=== PATIENT | male | born 1935 | race African-American/Black ===

== ENCOUNTER 2016-12-18 19:01 | Emergency (ER) | payer MEDICARE, OTHER ==
[2016-12-18] MEDS ORDERED: traMADol HCl 50 MG TAB ONE (20:16)
--- NOTE | 2016-12-18 20:52 | RAD ---
RIGHT KNEE FOUR VIEWS 12/18/16 HISTORY: Fall. Right knee injury. FINDINGS: There is fragmentation of the medial tibial spine with minimal displacement. Tricompartmental osteop hytosis is present with chondrocalcinosis. Small amount of fluid distends the suprapatellar bursa. There is mild impaction of the articular surface of the lateral femoral condyle. IMPRESSION: 1. Joint fluid and other radiographic findings are evidence of anterior cruciate ligament injur y. 2. Osteoarthritis with chondrocalcinosis. POS: [facility]
--- NOTE | 2016-12-18 21:11 | ERRECORD ---
[facility] EMERGENCY RECORD HPI KNEE (19:14 AGRE) CHIEF COMPLAINT: Patient presents for evaluation of decreased range of motion, Patient presents for evaluation of injury, Patient presents for evaluation of pain, Patient presents for evaluation of swelling, to the right knee. HISTORIAN: History provided by patient, History provided by patient's family, FELL WHEN SLIPPED IN RAIN AND LANDED ON THE RIGHT KNEE 2 DAYS AGO. HAS SWELLING AND PAIN OF THE RIGHT KNEE. HURTS TO WALK. NO OTHER INJURIES. MECHANISM OF INJURY: Known mechanism, Mechanism of injury fall. LOCATION: Symptoms are localized, most severe anteriorally. QUALITY: Pain is dull in nature, described as aching, described as throbbing. SEVERITY: Maximum severity of symptoms moderate, Currently symptoms are moderate. TIME COURSE: Sudden onset of symptoms, There has been no change in the patient's symptoms over time. ASSOCIATED WITH: No associated ankle pain, No associated coolness to touch, Associated with decreased range of motion, No associated foot pain, No associated hip pain, Associated with injury, Associated with pain on walking, Associated with swelling, Associated with warmth. EXACERBATED BY: Patient's condition exacerbated by walking. RELIEVED BY: Patient's condition relieved by rest. ROS (19:16 AGRE) CONSTITUTIONAL: Historian denies chills, denies fever, denies lethargy, denies malaise. EYES: Historian denies eye pain, denies eye redness. ENT: Historian denies rhinorrhea, denies sinus pain, denies sore throat. CARDIOVASCULAR: Historian denies chest pain, denies dyspnea on exertion. RESPIRATORY: Historian denies cough, denies shortness of breath. GI: Historian denies abdominal pain, denies nausea, denies vomiting. MUSCULOSKELETAL: Historian denies back pain, denies neck pain. SKIN: Negative skin review of systems, Historian denies skin changes, denies skin lesions. NEUROLOGIC: Historian denies headache, denies mental status changes. PSYCHIATRIC: Negative psychiatric review of systems, Historian denies anxiety. PAST MEDICAL HISTORY (19:16 [facility]) MEDICAL HISTORY: Notes: "PROSTATE PROBLEMS", Flu vaccine up to date, Tetanus immunization up to date, Pneumococcal vaccine up to date, Past medical history includes history of hyperlipidemia, high cholesterol, Past medical history includes history of hypertension, which has been treated, Patient is &a-1R&a+25V*p+0X*h1770X*c202B*c15G*c2P*p-0X&a-25V&a+1R Name: Jignesh Iglesias : 1935 M81 MedRec: [id number] AcctNum: [id number] Prepared: SatDec 19, 2016 00:53 by Interface Page 1 of 4 pMD [facility] EMERGENCY RECORD compliant. MALE SURGICAL HISTORY: Patient has no surgical history. PSYCHIATRIC HISTORY: No previous psychiatric history. SOCIAL HISTORY: Patient denies alcohol use, Patient denies drug use, Patient is a former tobacco user, smoked cigarettes, Tobacco history notes: "QUIT ABOUT 40 YEARS AGO", Lives at home, with family. KNOWN ALLERGIES No Known Allergies (Unconfirmed) No Known Drug Allergies CURRENT MEDICATIONS (19:13 [facility]) pentoxifylline: TABLET, EXTENDED RELEASE : Strength - 400 mg : ORAL Patient Dose: 1 tab(s) Oral 2 times a day (with meals). finasteride: TABLET : Strength - 5 mg : ORAL Patient Dose: 1 tab(s) Oral once a day. amLODIPine: TABLET : Strength - 10 mg : ORAL Patient Dose: 1 tab(s) Oral once a day. atorvastatin: TABLET : Strength - 10 mg : ORAL Patient Dose: 1 tab(s) Oral once a day. tamsulosin: CAPSULE, EXT RELEASE 24 HR : Strength - 0.4 mg : ORAL Patient Dose: 1 tab(s) Oral As Needed.ONCE A DAY PRN. aspirin: TABLET : Strength - 81 mg : ORAL Patient Dose: 1 tab(s) Oral once a day. VITAL SIGNS (19:12 [facility]) VITAL SIGNS: BP: 185/78, Pulse: 90, Resp: 18, Temp: 99.0 (Oral), Pain: 6, O2 sat: 96, Time: 12/18/2016 19:12. PHYSICAL EXAM (19:16 [facility]) CONSTITUTIONAL: Vital signs reviewed, Patient afebrile, Patient appears non toxic, Patient appears pain free, Patient alert and oriented to person, place and time, NURSES NOTES REVIEWED. HEAD: Head exam included findings of head atraumatic, normocephalic. EYES: Eye exam included findings of eyelids normal to inspection, Extraocular muscles intact, Conjunctiva normal, Sclera normal. ENT: Ear exam normal, Nose exam normal, Mouth exam normal. NECK: Neck exam included findings of normal range of motion, no meningeal signs. RESPIRATORY CHEST: Respiratory exam included findings of no respiratory distress, Chest exam included findings of chest movement symmetrical. &a-1R&a+25V*p+0X*d6744J*c202B*c15G*c2P*p-0X&a-25V&a+1R Name: Jignesh Iglesias : 1935 M81 MedRec: [id number] AcctNum: [id number] Prepared: SatDec 19, 2016 00:53 by Interface Page 2 of 4 pMD [facility] EMERGENCY RECORD BACK: Back exam included findings of normal inspection, range of motion normal. UPPER EXTREMITY: Upper extremity exam included findings of inspection normal, Range of motion normal. LOWER EXTREMITY: SWELLING WITH GENERALIZED TENDERNESS, INCREASED WARMTH AND JOINT EFFUSION OVER THE RIGHT KNEE. NO INSTABILITY. THERE IS F.R.O.M. WITH DISCOMFORT. NO NEUROVASCULAR DEFICITS. REMAINDER OF RLE EXAM IS WNL INCLUDING HIP, FEMUR, ANKLE, TIB-FIB, FOOT. NEURO: Neuro exam findings include patient oriented to person, place and time, Speech normal, Gait normal, Memory normal, Cranial nerves intact, no focal motor deficits. SKIN: Skin exam included findings of skin warm, dry, and normal in color. PSYCHIATRIC: Psychiatric exam normal, Normal affect. RADIOLOGYINTERPRETATION (19:55 AGRE) CARPET JACK: Preliminary review of x-rays by, Radiologist, FRAGMENTATION OF MEDIAL TIBIA SPINE. FLUID IN JOINT C/W ALC INJURY. CHANGES C/W DJD. MEDICATION ADMINISTRATION SUMMARY Drug Name: Ultram, Dose Ordered: 1 tab(s), Route: Oral, Status: Given, Time: 20:17 12/18/2016, Detailed record available in Medication Service section. DOCTOR NOTES (SatDec 19, 2016 00:47 AGRE) TEXT: DISCUSSED WITH PATIENT AND FAMILY THE FINDINGS ON EXAM AND RESULTS OF ED WORK UP, DISCUSSED ACL INJURY, FRACTURE, MANAGEMENT OF THE INJURIES, PAIN CONTROL, NEED FOR FOLLOW UP WITH ORTHOPEDIC SURGEON. THEY EXPRESSED UNDERSTANDING AND AGREEMENT WITH THIS PLAN. PATIENT STATUS: Patient has improved since arrival to emergency department. PATIENT PLAN: The patient will be discharged. DATA REVIEWED: Xray data reviewed, Discussed with family. PROBLEM LIST No recorded problems DIAGNOSIS (20:01 AGRE) FINAL: PRIMARY: Proximal tibia fracture, ADDITIONAL: JOINT EFFUSION. PRESCRIPTION (20:02 AGRE) Ultram: TABLET : 50 mg : ORAL : Quantity: 1 Unit: tab(s) Route: ORAL Schedule: every 4 hours prn Dispense: 20 May substitute. Refills: No Refills . NOTES: No Refills. &a-1R&a+25V*p+0X*g5752H*c202B*c15G*c2P*p-0X&a-25V&a+1R Name: Jignesh Iglesias : 1935 M81 MedRec: [id number] AcctNum: [id number] Prepared: SatDec 19, 2016 00:53 by Interface Page 3 of 4 pMD [facility] EMERGENCY RECORD DISPOSITION PATIENT: Disposition Type: Discharge, Disposition: *Discharge Home, Condition: Improved. (20:01 AGRE) Patient left the department. (20:55 MSMI) Miranda: AGRE=MD Suraj, Ezra LK=ABBY Chawla, Xochitl MSMI=ABBY Bassett, Chelle &a-1R&a+25V*p+0X*l0102W*c202B*c15G*c2P*p-0X&a-25V&a+1R Name: Jignesh Iglesias : 1935 M81 MedRec: [id number] AcctNum: [id number] Prepared: SatDec 19, 2016 00:53 by Interface Page 4 of 4 pMD MTDD
--- NOTE | 2016-12-19 01:10 | PICIS ---
[facility] EMERGENCY RECORD TRIAGE (SatDec 18, 2016 19:11 [facility]) TRIAGE NOTES: FALL SATURDAY. LEFT KNEE PAIN. (SatDec 18, 2016 19:11 [facility]) PATIENT: NAME: Jignesh Iglesias, AGE: 81, GENDER: male, : Sat 1935, TIME OF GREET: SatDec 18, 2016 19:02, PREFERRED LANGUAGE: Indian, ETHNICITY: Not or , ECODE BILLING MAP: [facility], SSN: [id number], Zip Code: [address], KG WEIGHT: 70.76 (est.), PHONE: , , , PERSON ID: [id number], PCP: Jia BARAHONA LUKE. (SatDec 18, 2016 19:11 [facility]) COMPLAINT: RIGHT KNEE INJURY. (SatDec 18, 2016 19:11 [facility]) ADMISSION: URGENCY: 4 Non Urgent, ADMISSION SOURCE: Home, TRANSPORT: CAR, BED: ER -03. (SatDec 18, 2016 19:11 [facility]) PAIN: Patient complains of pain described as, on a scale 0-10 patient rates pain as 6, Location LEFT KNEE, Onset was 12/16/2016, Aggravating factors:, Aggravating factors include WEIGHT-BEARING. (19:16 [facility]) IMMUNIZATIONS: Flu vaccine up to date, Tetanus immunization up to date, Pneumococcal vaccine up to date. (19:16 [facility]) SIRS SCORING: Heart Rate 55-109 (0), Temp range 96.8-101.1 (0), respiratory rate 12-24 (0), Mental Status altered: no (0). (19:16 LK) TRIAGE SCREENING: Patient denies suicidal ideation, Patient denies presence of domestic violence. (19:16 LK) TREATMENTS IN PROGRESS: Treatments given Prehospital: IBUPROFEN @ 1200. (19:16 [facility]) PROVIDERS: TRIAGE NURSE: Xochitl Chawla RN. (SatDec 18, 2016 19:11 [facility]) PREVIOUS VISIT ALLERGIES: No Known Drug Allergies. (SatDec 18, 2016 19:11 [facility]) No Known Drug Allergies. (19:16 [facility]) KNOWN ALLERGIES No Known Allergies (Unconfirmed) No Known Drug Allergies CURRENT MEDICATIONS (19:13 [facility]) pentoxifylline: TABLET, EXTENDED RELEASE : Strength - 400 mg : ORAL Patient Dose: 1 tab(s) Oral 2 times a day (with meals). finasteride: TABLET : Strength - 5 mg : ORAL Patient Dose: 1 tab(s) Oral once a day. amLODIPine: TABLET : Strength - 10 mg : ORAL Patient Dose: 1 tab(s) Oral once a day. atorvastatin: TABLET : Strength - 10 mg : ORAL Patient Dose: 1 tab(s) Oral once a day. tamsulosin: &a-1R&a+25V*p+0X*o3862T*c202B*c15G*c2P*p-0X&a-25V&a+1R Name: Jignesh Iglesias : 1935 M81 MedRec: [id number] AcctNum: [id number] Prepared: SatDec 19, 2016 01:01 by Interface Page 1 of 5 pMD [facility] EMERGENCY RECORD CAPSULE, EXT RELEASE 24 HR : Strength - 0.4 mg : ORAL Patient Dose: 1 tab(s) Oral As Needed.ONCE A DAY PRN. aspirin: TABLET : Strength - 81 mg : ORAL Patient Dose: 1 tab(s) Oral once a day. VITAL SIGNS (19:12 [facility]) VITAL SIGNS: BP: 185/78, Pulse: 90, Resp: 18, Temp: 99.0 (Oral), Pain: 6, O2 sat: 96, Time: 12/18/2016 19:12. NURSING PROCEDURE: TRANSPORT TO TESTS (19:23 [facility]) TRANSPORT TO TESTS: Patient transported to x-ray, via cart, Accompanied by x-ray windows server support technician, Patient arrived in location at 19:21, Patient departed location at 1931. ORDER DETAILS Order Name: Miscellaneous Nurse Order(s), Status: Done, Time: 20:54 12/18/2016, [facility], - Ordered for: MD Ruelas Andrea, - Entered by: MD Ruelas Andrea - Tue Dec 18, 2016 20:00, - Quantity: 1, Order Name: XR Knee Rt 3 View, Status: Canceled, Time: 19:21 12/18/2016, User: System, - Ordered for: MD Ruelas Andrea, - Entered by: MD Ruelas Andrea - SatDec 18, 2016 19:13, - Quantity: 1. MEDICATION ADMINISTRATION SUMMARY Drug Name: Ultram, Dose Ordered: 1 tab(s), Route: Oral, Status: Given, Time: 20:17 12/18/2016, Detailed record available in Medication Service section. MEDICATION SERVICE (20:17 AGRE) Ultram: Order: Ultram (tramadol HCl) - Dose: 1 tab(s) : Oral Ordered by: Ezra Ruelas MD Entered by: Ezra Ruelas MD SatDec 18, 2016 20:06 , Acknowledged by: Xochitl Chawla RN SatDec 18, 2016 20:15 Documented as given by: Xochitl Chawla RN SatDec 18, 2016 20:17 Patient, Medication, Dose, Route and Time verified prior to administration. Amount given: 50 MG, Site: Medication administered P.O., Mouth check performed after administration of medication, Patient appears Awake and alert- acceptable, Correct patient, time, route, dose and medication confirmed prior to administration, Patient advised of actions and side-effects prior to administration, Allergies confirmed and medications reviewed prior to administration, Patient tolerated procedure well, Patient in position of comfort, Side rails up, Cart &a-1R&a+25V*p+0X*f7632L*c202B*c15G*c2P*p-0X&a-25V&a+1R Name: Jignesh Iglesias Wai : 1935 M81 MedRec: [id number] AcctNum: [id number] Prepared: SatDec 19, 2016 01:01 by Interface Page 2 of 5 pMD [facility] EMERGENCY RECORD in lowest position, Family at bedside, Call light in reach. HPI KNEE (19:14 AGRE) CHIEF COMPLAINT: Patient presents for evaluation of decreased range of motion, Patient presents for evaluation of injury, Patient presents for evaluation of pain, Patient presents for evaluation of swelling, to the right knee. HISTORIAN: History provided by patient, History provided by patient's family, FELL WHEN SLIPPED IN RAIN AND LANDED ON THE RIGHT KNEE 2 DAYS AGO. HAS SWELLING AND PAIN OF THE RIGHT KNEE. HURTS TO WALK. NO OTHER INJURIES. MECHANISM OF INJURY: Known mechanism, Mechanism of injury fall. LOCATION: Symptoms are localized, most severe anteriorally. QUALITY: Pain is dull in nature, described as aching, described as throbbing. SEVERITY: Maximum severity of symptoms moderate, Currently symptoms are moderate. TIME COURSE: Sudden onset of symptoms, There has been no change in the patient's symptoms over time. ASSOCIATED WITH: No associated ankle pain, No associated coolness to touch, Associated with decreased range of motion, No associated foot pain, No associated hip pain, Associated with injury, Associated with pain on walking, Associated with swelling, Associated with warmth. EXACERBATED BY: Patient's condition exacerbated by walking. RELIEVED BY: Patient's condition relieved by rest. ROS (19:16 [facility]) CONSTITUTIONAL: Historian denies chills, denies fever, denies lethargy, denies malaise. EYES: Historian denies eye pain, denies eye redness. ENT: Historian denies rhinorrhea, denies sinus pain, denies sore throat. CARDIOVASCULAR: Historian denies chest pain, denies dyspnea on exertion. RESPIRATORY: Historian denies cough, denies shortness of breath. GI: Historian denies abdominal pain, denies nausea, denies vomiting. MUSCULOSKELETAL: Historian denies back pain, denies neck pain. SKIN: Negative skin review of systems, Historian denies skin changes, denies skin lesions. NEUROLOGIC: Historian denies headache, denies mental status changes. PSYCHIATRIC: Negative psychiatric review of systems, Historian denies anxiety. PAST MEDICAL HISTORY (19:16 [facility]) MEDICAL HISTORY: Notes: "PROSTATE PROBLEMS", Flu vaccine up to date, Tetanus immunization up to date, Pneumococcal vaccine up to date, Past medical history includes history of &a-1R&a+25V*p+0X*g8989S*c202B*c15G*c2P*p-0X&a-25V&a+1R Name: Jignesh Iglesias Wai : 1935 M81 MedRec: [id number] AcctNum: [id number] Prepared: SatDec 19, 2016 01:01 by Interface Page 3 of 5 pMD [facility] EMERGENCY RECORD hyperlipidemia, high cholesterol, Past medical history includes history of hypertension, which has been treated, Patient is compliant. MALE SURGICAL HISTORY: Patient has no surgical history. PSYCHIATRIC HISTORY: No previous psychiatric history. SOCIAL HISTORY: Patient denies alcohol use, Patient denies drug use, Patient is a former tobacco user, smoked cigarettes, Tobacco history notes: "QUIT ABOUT 40 YEARS AGO", Lives at home, with family. PHYSICAL EXAM (19:16 AGRE) CONSTITUTIONAL: Vital signs reviewed, Patient afebrile, Patient appears non toxic, Patient appears pain free, Patient alert and oriented to person, place and time, NURSES NOTES REVIEWED. HEAD: Head exam included findings of head atraumatic, normocephalic. EYES: Eye exam included findings of eyelids normal to inspection, Extraocular muscles intact, Conjunctiva normal, Sclera normal. ENT: Ear exam normal, Nose exam normal, Mouth exam normal. NECK: Neck exam included findings of normal range of motion, no meningeal signs. RESPIRATORY CHEST: Respiratory exam included findings of no respiratory distress, Chest exam included findings of chest movement symmetrical. BACK: Back exam included findings of normal inspection, range of motion normal. UPPER EXTREMITY: Upper extremity exam included findings of inspection normal, Range of motion normal. LOWER EXTREMITY: SWELLING WITH GENERALIZED TENDERNESS, INCREASED WARMTH AND JOINT EFFUSION OVER THE RIGHT KNEE. NO INSTABILITY. THERE IS F.R.O.M. WITH DISCOMFORT. NO NEUROVASCULAR DEFICITS. REMAINDER OF RLE EXAM IS WNL INCLUDING HIP, FEMUR, ANKLE, TIB-FIB, FOOT. NEURO: Neuro exam findings include patient oriented to person, place and time, Speech normal, Gait normal, Memory normal, Cranial nerves intact, no focal motor deficits. SKIN: Skin exam included findings of skin warm, dry, and normal in color. PSYCHIATRIC: Psychiatric exam normal, Normal affect. EVENTS TRANSFER: Triage to Emergency Emergency Room -03. (SatDec 18, 2016 19:11 [facility]) Removed from Emergency Emergency Room -03. (20:55 [facility]) RADIOLOGYINTERPRETATION (19:55 [facility]) HAZMAT CDL A DRIVER: Preliminary review of x-rays by, Radiologist, FRAGMENTATION OF MEDIAL TIBIA SPINE. FLUID IN JOINT C/W ALC INJURY. CHANGES C/W DJD. &a-1R&a+25V*p+0X*e0724B*c202B*c15G*c2P*p-0X&a-25V&a+1R Name: Jignesh Iglesias : 1935 M81 MedRec: [id number] AcctNum: [id number] Prepared: SatDec 19, 2016 01:01 by Interface Page 4 of 5 pMD [facility] EMERGENCY RECORD DOCTOR NOTES (SatDec 19, 2016 00:47 AGRE) TEXT: DISCUSSED WITH PATIENT AND FAMILY THE FINDINGS ON EXAM AND RESULTS OF ED WORK UP, DISCUSSED ACL INJURY, FRACTURE, MANAGEMENT OF THE INJURIES, PAIN CONTROL, NEED FOR FOLLOW UP WITH ORTHOPEDIC SURGEON. THEY EXPRESSED UNDERSTANDING AND AGREEMENT WITH THIS PLAN. PATIENT STATUS: Patient has improved since arrival to emergency department. PATIENT PLAN: The patient will be discharged. DATA REVIEWED: Xray data reviewed, Discussed with family. PROBLEM LIST No recorded problems DIAGNOSIS (20:01 AGRE) FINAL: PRIMARY: Proximal tibia fracture, ADDITIONAL: JOINT EFFUSION. DISPOSITION PATIENT: Disposition Type: Discharge, Disposition: *Discharge Home, Condition: Improved. (20:01 AGRE) Patient left the department. (20:55 MSMI) INSTRUCTION (20:08 AGRE) DISCHARGE: FRACTURE, KNEE, KNEE EFFUSION. FOLLOWUP: Jia BARAHONA, [place], Internal Medicine, [address] [facility] [address], , MD Gabe, [place], Orthopedics, [address] [facility] [address], . SPECIAL: NO WEIGHT BEARING ON THE RIGHT KNEE UNTIL CLEARED BY A PHYSICIAN. FOLLOW UP WITH YOUR PRIMARY CARE PHYSICIAN TOMORROW FOR REFERRAL TO AN ORTHOPEDIC SURGEON. ICE PACKS TO THE KNEE FOR 20 MINUTES EVERY 4 HOURS WHILE AWAKE FOR THE NEXT 4 DAYS. PRESCRIPTION (20:02 AGRE) Ultram: TABLET : 50 mg : ORAL : Quantity: 1 Unit: tab(s) Route: ORAL Schedule: every 4 hours prn Dispense: 20 May substitute. Refills: No Refills . NOTES: No Refills. ADMIN (SatDec 19, 2016 00:50 AGRE) DIGITAL SIGNATURE: MD Ruelas Andrea. Miranda: AGRE=MD Ruelas Andrea CCRI=SINDY Mera Clemente LK[facility]=ABBY Chawla, Xochitl MSMI=ABBY Bassett, Chelle &a-1R&a+25V*p+0X*m2812F*c202B*c15G*c2P*p-0X&a-25V&a+1R Name: Jignesh Iglesias : 1935 M81 MedRec: [id number] AcctNum: [id number] Prepared: Henrik Dec 19, 2016 01:01 by Interface Page 5 of 5 pMD MTDD
== END 2016-12-18 20:55 | disposition home or self-care (01) ==
LOC: NAV ERS 19:01
DX: S82.101A Unspecified fracture of upper end of right tibia, initial encounter for closed fracture (principal); I10 Essential (primary) hypertension; E78.5 Hyperlipidemia, unspecified; E78.00 Pure hypercholesterolemia, unspecified; Z87.891 Personal history of nicotine dependence; Z79.82 Long term (current) use of aspirin; Z79.899 Other long term (current) drug therapy; W01.0XXA Fall on same level from slipping, tripping and stumbling without subsequent striking against object, initial encounter
CPT/HCPCS: 99283

== ENCOUNTER 2017-08-02 08:39 | Outpatient (CLI) | payer MEDICARE, OTHER ==
[2017-08-02 12:23] LABS: #Basophils 0.1 thou/uL (0.0-0.2); #Eosinphils 0.4 thou/uL (0.0-0.7); #Lymphocytes 2.7 thou/uL (1.20-3.40); #Monocytes 0.5 thou/uL (0.11-0.59); #Neutrophils 2.3 thou/uL (1.40-6.50); %Basophils 0.9 % (0.0-1.0); %Eosinophils 6.5 % (0.0-10.0); %Lymphocytes 45.6 % (21.0-51.0); Hemoglobin 13.3 g/dL (14.0-18.0); Mean Corpuscular HGB CONC 31.4 g/dL (32.0-36.0); Mean Corpuscular Hemoglobin 30.1 pg (27.0-31.0); Mean Platelet Volume 5.6 fL (7.4-10.4); Platelet Count 173 thou/uL (130-400); RBC Distribution Width 12.7 % (11.5-14.5)
[2017-08-02 12:25] LABS: Bilirubin Negative (Negative); Blood, Urine Negative (Negative); Clarity Clear (Clear); Glucose, Urine (Dipstick) Negative (Negative); Leukocyte Negative (Negative); Nitrite Negative (Negative); Protein, Urine (Dipstick) Negative (Neg-Trace); Urobilinogen 0.2 mg/dL (0.2-1.0)
[2017-08-02 12:40] LABS: ALT (SGPT) 13 U/L (8-55); AST (SGOT) 18 U/L (5-34); Albumin 3.8 g/dL (3.4-4.8); Alkaline Phosphatase 74 U/L (40-150); Anion Gap 12 mmol/L (10-20); BUN (Urea Nitrogen) 19 mg/dL (8.4-25.7); Bilirubin, Total 0.5 mg/dL (0.2-1.2); Calc. Creatinine Clearance 0 mL/min (70-130); Calcium 9.6 mg/dL (7.8-10.44); Carbon Dioxide 25 mmol/L (23-31); Chloride 107 mmol/L (98-107); Cholesterol 146 mg/dl (< 200 Desired); Estimated GFR-MDRD 89; Globulin 3.4 g/dL (2.4-3.5); Glucose 81 mg/dL (83-110); HDL Cholesterol 48 mg/dL (>60 Neg Risk); LDL Cholesterol, Calculated 82 mg/dL; Potassium 4.4 mmol/L (3.5-5.1); Protein, Total 7.2 g/dL (5.8-8.1); Sodium 140 mmol/L (136-145); Triglycerides 79 mg/dL (Less than 150)
[2017-08-02 12:55] LABS: PSA-Asymptomatic (SCREENING) 0.44 ng/mL (0-4.0); Thyroid Stimulating Hormone 2.5049 uIU/mL (0.35-4.94)
== END 2017-08-02 08:40 | disposition home or self-care (01) ==
LOC: NAVSJIPCSP 08:39
PROVIDERS: ATTEND Internal Medicine
DX: Z12.5 Encounter for screening for malignant neoplasm of prostate (principal); I10 Essential (primary) hypertension; E78.5 Hyperlipidemia, unspecified
CPT/HCPCS: 36415; 80053; 80061; 81003; 84443; 85025; G0103

== ENCOUNTER 2018-08-25 08:36 | Outpatient (CLI) | payer MEDICARE, OTHER ==
--- NOTE | 2018-08-25 11:16 | ULT ---
ULTRASOND DOPPLER DUPLEX CAROTID: Date: 08/25/18 HISTORY: Bilateral carotid bruits in 82-year-old male. TECHNIQUE: Mcclain scale, color flow, and spectral analysis of major arteries of neck. FINDINGS: Highest peak systolic velocities in the internal carotid artery are 65 cm/s on the right and 80 cm/s on the left. End-diastolic velocities are 15 cm/s on the right and 20 cm/s on the left. ICA/CCA ratios are 0.7 on the right and 0.8 on the left. There is heavy atheromatous plaque at the right carotid bulb, including at the origin of the right in ternal carotid artery, causing shadowing that obscures the lumen at that location. Velocity measureme nt could not be obtained at that location. There is moderate calcified plaque in the contralateral left carotid bulb. Vertebral artery flow is antegrade bilaterally. IMPRESSION: 1. 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 2. Although velocities would indicate less than 50% stenosis in the bilateral internal carotid arter ies, the origin of the right internal carotid artery at the carotid bulb is obscured by shadowing fro m the heavily calcified plaque. It is possible that there could be significantly higher degree of hortencia nosis in that location. CT angiogram of neck with contrast may be useful. POS: [facility]
== END 2018-08-25 08:37 | disposition home or self-care (01) ==
LOC: NAV ULT 08:36
PROVIDERS: ATTEND Internal Medicine
DX: R09.89 Other specified symptoms and signs involving the circulatory and respiratory systems (principal); I65.23 Occlusion and stenosis of bilateral carotid arteries
CPT/HCPCS: 93880

== ENCOUNTER 2019-05-20 13:12 | Outpatient (CLI) | payer MEDICARE, OTHER ==
[2019-05-20 13:33] LABS: Bilirubin Negative (Negative); Blood, Urine Large (Negative); Glucose, Urine (Dipstick) Negative (Negative); Leukocyte Large (Negative); Nitrite Negative (Negative); Protein, Urine (Dipstick) 30 mg/dL (Neg-Trace); Urobilinogen 0.2 mg/dL (Less than 2)
[2019-05-20 13:34] LABS: Bacteria/HPF 1+ HPF (None Seen); Clarity Hazy (Clear); RBC/HPF Greater than 50 HPF (0-3); Squamous Epithelial 0-3 HPF (0-3); WBC/HPF Greater Than 50 HPF (0-3)
== END 2019-05-20 13:13 | disposition home or self-care (01) ==
LOC: NAVSJIPCSP 13:12
PROVIDERS: ATTEND Internal Medicine
DX: N20.0 Calculus of kidney (principal)
CPT/HCPCS: 81003; 81015; 87086

== ENCOUNTER 2019-09-28 09:24 | Outpatient (CLI) | payer MEDICARE, OTHER ==
[~2019-09-28 09:24] MED LIST: Iopamidol 370 76% 100 ML VIAL ONE
[2019-09-28 10:34] LABS: Calc. Creatinine Clearance 0 mL/min (70-130); Estimated GFR-MDRD Greater than 90
--- NOTE | 2019-09-28 11:53 | CT ---
ABDOMEN CT WITH AND WITHOUT CONTRAST PELVIC CT WITH AND WITHOUT CONTRAST: HISTORY: Malignant tumor of the bladder dome. COMPARISON: Chest CT 04/13/2013. FINDINGS: Abdomen CT: Moderate right-sided effusion with adjacent consolidation of atelectasis or pneumonia. Loculated, per ipherally enhancing collection adjacent to the right heart border measuring 8.3 x 6.0 cm. Heart is enlarged. Visualized aorta has a normal caliber. No periaortic fat stranding. Portal vein is patent. Unremarkable gallbladder. Liver, spleen, pancreas and adrenal gland have normal attenuation. Stable hypodensity in the right he patic lobe, measuring 0.5 cm. Symmetric enhancement of the kidneys. Multiple hypodensities in the left renal cortex compatible with cyst. The largest cyst measures 1.8 x 2.5 cm. There is a hypodensity in the left renal cortex measuring 1.3 x 1.6 cm also compatible with a cyst. Bilaterally no obstructive uropathy. No gastrohepatic, retrocrural or periportal lymphadenopathy. No mesenteric mass, lymphadenopathy, free air or free fluid. Limited evaluation of the abdominal mese ntery due to decreased visceral fat. Unremarkable gallbladder. Limited evaluation of the alimentary canal by the lack of oral contrast. No evidence of bowel obstruc tion. Ileocecal junction is unremarkable. Scattered fecal material in a nondistended, nondilated colon. Diverticulosis, without evidence of diverticulitis. Delayed images: There is symmetric enhancement and excretion into the intrarenal collecting systems. No obvious filli ng defects in the opacified right extrarenal collecting system. Incomplete opacification of the left extrarenal collecting system. Pelvis CT: Abnormal soft tissue mass is noted in the urinary bladder, incompletely evaluated. Mass is noted along the posterior aspect of the bladder, measuring 3.6 x 2.5 cm. Urbano catheter is identified. No obvious pelvic mass, lymphadenopathy, free air or free fluid. Osseous structures: No lytic or blastic lesions. IMPRESSION: 1. Moderate right-sided pleural effusion with adjacent lung consolidation due to atelectasis, aspirat ion or pneumonia. 2. Peripherally enhancing loculated focus just to the right heart border, incompletely evaluated. Com plex fluid collection is favored. 3. Urinary bladder mass, as described above. 4. Left renal cyst. Transcribed Date/Time: 09/28/2019 12:01 PM
== END 2019-09-28 09:25 | disposition home or self-care (01) ==
LOC: NAV CT 09:24
PROVIDERS: ATTEND Urology
DX: C67.1 Malignant neoplasm of dome of bladder (principal); J90 Pleural effusion, not elsewhere classified; N28.1 Cyst of kidney, acquired; N32.89 Other specified disorders of bladder
CPT/HCPCS: 36415; 74178; 82565; Q9967

== ENCOUNTER 2020-06-16 17:04 | Emergency (ER) | payer MEDICARE, OTHER ==
[2020-06-16] MEDS ORDERED: Ondansetron PF 4 MG/2 ML Vial ONE (17:22)
[2020-06-16] MEDS ORDERED: Acetaminophen 500 MG TAB ONE (17:22)
[2020-06-16] MEDS ORDERED: Fentanyl 100 MCG/2 ML VIAL ONE (17:22)
[2020-06-16] MEDS ORDERED: Sodium Chloride 0.9% 1,000 ML ONE (17:22)
[2020-06-16 17:58] LABS: #Basophils 0.1 thou/uL (0.0-0.2); #Eosinphils 0.1 thou/uL (0.0-0.7); #Lymphocytes 1.5 thou/uL (1.20-3.40); #Monocytes 0.5 thou/uL (0.11-0.59); #Neutrophils 13.1 thou/uL (1.40-6.50); %Basophils 0.6 % (0.0-1.0); %Eosinophils 0.5 % (0.0-10.0); %Lymphocytes 9.9 % (21.0-51.0); %Monocytes 3.4 % (0.0-10.0); %Neutrophils 85.6 % (42.0-75.0); Hemoglobin 11.4 g/dL (14.0-18.0); Mean Corpuscular HGB CONC 30.4 g/dL (32.0-36.0); Mean Corpuscular Hemoglobin 28.9 pg (27.0-31.0); Mean Platelet Volume 6.8 fL (7.4-10.4); Platelet Count 196 thou/uL (130-400); RBC Distribution Width 12.6 % (11.5-14.5); Red Blood Cell (RBC) Count 3.95 mill/uL (4.70-6.10); White Blood Cell (WBC) Count 15.3 thou/uL (4.8-10.8)
[2020-06-16 18:00] LABS: ALT (SGPT) 10 U/L (8-55); AST (SGOT) 22 U/L (5-34); Alkaline Phosphatase 77 U/L (40-110); Anion Gap 17 mmol/L (10-20); BUN (Urea Nitrogen) 37 mg/dL (8.4-25.7); Bilirubin, Total 0.6 mg/dL (0.2-1.2); Calc. Creatinine Clearance 0 mL/min (70-130); Calcium 9.7 mg/dL (7.8-10.44); Carbon Dioxide 22 mmol/L (23-31); Chloride 101 mmol/L (98-107); Estimated GFR-MDRD 23; Globulin 4.7 g/dL (2.4-3.5); Glucose 115 mg/dL (83-110); Potassium 4.1 mmol/L (3.5-5.1); Protein, Total 8.7 g/dL (5.8-8.1); Sodium 136 mmol/L (136-145)
[2020-06-16 18:18] LABS: Bilirubin Negative (Negative); Blood, Urine Large (Negative); Clarity Clear (Clear); Glucose, Urine (Dipstick) Negative (Negative); Ketone, Urine Negative (Negative); Leukocyte Moderate (Negative); Nitrite Positive (Negative); Protein, Urine (Dipstick) 100 mg/dL (Neg-Trace); Urobilinogen 0.2 mg/dL (Less than 2); pH, Urine 5.5 (5.0-9.0)
[2020-06-16 18:23] LABS: Bacteria/HPF 2+ HPF (None Seen); RBC/HPF Greater than 50 HPF (0-3); Squamous Epithelial 0-3 HPF (0-3); WBC/HPF Greater Than 50 HPF (0-3)
[2020-06-16] MEDS ORDERED: Piperacillin/Tazobactam 4.5 GM VIAL ONE (18:35)
--- NOTE | 2020-06-16 19:00 | CT ---
CT ABDOMEN AND PELVIS WITH IV CONTRAST: 06/16/20 HISTORY: Right lower quadrant pain with vomiting and diarrhea. COMPARISON: 09/28/19. FINDINGS: Imaging was performed during the urographic phase after IV contrast administration. There are dependent changes in the lung bases. No free air is seen. There is a small amount of free f luid in the abdomen and pelvis. No calcified gallstones are seen. There is normal contrast excretion into the ureters and urinary bladder. There is a Urbano catheter in the urinary bladder which is marke dly distended and contains a small amount of free air. There are cysts in the left kidney. These were also seen on the previous exam. No calcified gallstones are seen. The liver, spleen, pancreas, adren al glands and right kidney are unremarkable. The prostate is enlarged. There are vascular calcifications without evidence of aneurysmal dilatation of the abdominal aorta. T here are degenerative changes in the spine. IMPRESSION: 1. Markedly distended urinary bladder without evidence of hydroureteronephrosis. 2. Prostatic enlargement. 3. Small amount of free fluid in the abdomen and pelvis. 4. Left renal cysts. POS: [facility]
== END 2020-06-16 19:24 | disposition short-term general hospital (02) ==
LOC: NAV ERS 17:04
DX: N39.0 Urinary tract infection, site not specified (principal); E78.5 Hyperlipidemia, unspecified; E78.00 Pure hypercholesterolemia, unspecified; I10 Essential (primary) hypertension; C67.9 Malignant neoplasm of bladder, unspecified; Z87.891 Personal history of nicotine dependence; Z79.82 Long term (current) use of aspirin; Z79.899 Other long term (current) drug therapy
CPT/HCPCS: 36415; 74177; 80053; 81003; 81015; 83605; 83880; 84484; 85025; 87040; 87086; 93005; 94760; 96361; 96365; 96375; J2405; J2543; J3010; J7050; Q9967

== ENCOUNTER 2020-07-20 15:13 | Emergency (ER) | payer MEDICARE, OTHER ==
--- NOTE | 2020-07-20 16:21 | RAD ---
XR Abdomen 2 View/1 View Cxr HISTORY: Constipation and abdominal pain FINDINGS: The heart size is normal. The aorta is tortuous. The lungs are expanded without lobar consolidation, pneumothoraces or pleural effusions. No free air is seen. There is air in loops of small and large bowel. Few differential fluid levels ar e seen. There is fecal material in the colon. There are degenerative changes in the spine.
== END 2020-07-20 16:31 | disposition home or self-care (01) ==
LOC: NAV ERS 15:13
DX: R14.0 Abdominal distension (gaseous) (principal); E78.5 Hyperlipidemia, unspecified; E78.00 Pure hypercholesterolemia, unspecified; I10 Essential (primary) hypertension; Z87.891 Personal history of nicotine dependence; Z79.899 Other long term (current) drug therapy; Z79.82 Long term (current) use of aspirin
CPT/HCPCS: 74022; 82274

== ENCOUNTER 2020-07-27 18:13 | Emergency (ER) | payer MEDICARE, OTHER ==
[2020-07-27] MEDS ORDERED: cefTRIAXone\\ROCEPHIN 2 GM VIAL ONE (18:56)
[2020-07-27] MEDS ORDERED: Acetaminophen 500 MG TAB ONE (18:56)
[2020-07-27] MEDS ORDERED: Cefepime 2 GM VIAL ONE (18:56)
[2020-07-27] MEDS ORDERED: Sodium Chloride 0.9% 200 ML ONE (18:57)
--- NOTE | 2020-07-27 19:11 | RAD ---
Portable frontal chest radiograph: 07/27/2020 COMPARISON: 07/20/2020 HISTORY: Fever FINDINGS: Lungs are clear. Heart and mediastinal contours appear within normal limits. Mild stable in creased linear interstitial density IMPRESSION: No acute findings.
[2020-07-27 19:13] LABS: ALT (SGPT) 11 U/L (8-55); AST (SGOT) 23 U/L (5-34); Albumin 3.5 g/dL (3.4-4.8); Alkaline Phosphatase 62 U/L (40-110); Anion Gap 14 mmol/L (10-20); BUN (Urea Nitrogen) 18 mg/dL (8.4-25.7); Bilirubin, Total 0.5 mg/dL (0.2-1.2); Calc. Creatinine Clearance 0 mL/min (70-130); Calcium 9.1 mg/dL (7.8-10.44); Carbon Dioxide 24 mmol/L (23-31); Chloride 99 mmol/L (98-107); Estimated GFR-MDRD 68; Glucose 126 mg/dL (83-110); Potassium 4.1 mmol/L (3.5-5.1); Protein, Total 8.5 g/dL (5.8-8.1); Sodium 133 mmol/L (136-145)
[2020-07-27 19:14] LABS: #Lymphocytes 1.3 thou/uL (1.20-3.40); #Monocytes 0.7 thou/uL (0.11-0.59); #Neutrophils 9.5 thou/uL (1.40-6.50); %Basophils 0.4 % (0.0-1.0); %Eosinophils 0.2 % (0.0-10.0); %Lymphocytes 10.9 % (21.0-51.0); %Monocytes 5.7 % (0.0-10.0); %Neutrophils 82.8 % (42.0-75.0); Hemoglobin 9.3 g/dL (14.0-18.0); Mean Corpuscular Hemoglobin 25.9 pg (27.0-31.0); Mean Corpuscular Volume 86.6 fL (78.0-98.0); Mean Platelet Volume 5.5 fL (7.4-10.4); Platelet Count 331 thou/uL (130-400); Red Blood Cell (RBC) Count 3.58 mill/uL (4.70-6.10); White Blood Cell (WBC) Count 11.5 thou/uL (4.8-10.8)
[2020-07-27 19:32] LABS: Bilirubin Small (Negative); Blood, Urine Large (Negative); Glucose, Urine (Dipstick) Negative (Negative); Ketone, Urine Trace mg/dL (Negative); Leukocyte Moderate (Negative); Nitrite Positive (Negative); Protein, Urine (Dipstick) > or equal to 300 mg/dL (Neg-Trace); Urobilinogen 0.2 mg/dL (Less than 2); pH, Urine 8.5 (5.0-9.0)
[2020-07-27 19:34] LABS: Clarity Hazy (Clear)
[2020-07-27 19:42] LABS: Bacteria/HPF 1+ HPF (None Seen); RBC/HPF Greater than 50 HPF (0-3); Renal Epithelial 0-3 HPF (None Seen); Squamous Epithelial 0-3 HPF (0-3); WBC/HPF Greater Than 50 HPF (0-3)
== END 2020-07-27 20:48 | disposition short-term general hospital (02) ==
LOC: NAV ERS 18:13
DX: A41.9 Sepsis, unspecified organism (principal); C67.9 Malignant neoplasm of bladder, unspecified; N39.0 Urinary tract infection, site not specified; E78.5 Hyperlipidemia, unspecified; E78.00 Pure hypercholesterolemia, unspecified; I10 Essential (primary) hypertension; Z87.891 Personal history of nicotine dependence; Z79.82 Long term (current) use of aspirin; Z79.899 Other long term (current) drug therapy
CPT/HCPCS: 71045; 80053; 81003; 81015; 83605; 85025; 87040; 87077; 87086; 87186; 96365; 96367; J0692; J0696; J3370; J3490

== ENCOUNTER 2020-09-29 20:08 | Emergency (ER) | payer MEDICARE, OTHER ==
[2020-09-29 21:01] LABS: #Lymphocytes 1.7 thou/uL (1.20-3.40); #Monocytes 0.4 thou/uL (0.11-0.59); #Neutrophils 2.8 thou/uL (1.40-6.50); %Basophils 0.4 % (0.0-1.0); %Eosinophils 0.1 % (0.0-10.0); %Lymphocytes 34.2 % (21.0-51.0); %Monocytes 8.7 % (0.0-10.0); %Neutrophils 56.7 % (42.0-75.0); Hemoglobin 11.9 g/dL (14.0-18.0); Mean Corpuscular HGB CONC 30.6 g/dL (32.0-36.0); Mean Corpuscular Hemoglobin 27.8 pg (27.0-31.0); Mean Corpuscular Volume 90.7 fL (78.0-98.0); Platelet Count 158 thou/uL (130-400); RBC Distribution Width 17.8 % (11.5-14.5); Red Blood Cell (RBC) Count 4.27 mill/uL (4.70-6.10); White Blood Cell (WBC) Count 4.9 thou/uL (4.8-10.8)
[2020-09-29 21:06] LABS: Bilirubin Negative (Negative); Blood, Urine Large (Negative); Glucose, Urine (Dipstick) Negative (Negative); Ketone, Urine Trace mg/dL (Negative); Leukocyte Moderate (Negative); Nitrite Positive (Negative); Protein, Urine (Dipstick) 100 mg/dL (Neg-Trace)
[2020-09-29 21:07] LABS: Clarity SL HAZY (Clear)
[2020-09-29 21:10] LABS: Specific Gravity, Urine 1.022 (1.005-1.030)
--- NOTE | 2020-09-29 21:10 | RAD ---
RADIOGRAPH CHEST 1 VIEW: DATE: 09/29/2020 HISTORY: 85-year-old male with fever FINDINGS: There are no airspace densities, pulmonary edema, pneumothorax, or cardiomegaly. The lateral costophr enic angles are sharp. IMPRESSION: No acute cardiopulmonary findings.
[2020-09-29] MEDS ORDERED: Sodium Chloride 0.9% 500 ML ONE (21:12)
[2020-09-29 21:18] LABS: ALT (SGPT) 9 U/L (8-55); AST (SGOT) 22 U/L (5-34); Albumin 3.6 g/dL (3.4-4.8); Alkaline Phosphatase 58 U/L (40-110); Anion Gap 13 mmol/L (10-20); BUN (Urea Nitrogen) 18 mg/dL (8.4-25.7); Bilirubin, Total 0.3 mg/dL (0.2-1.2); Calc. Creatinine Clearance 0 mL/min (70-130); Calcium 8.7 mg/dL (7.8-10.44); Carbon Dioxide 23 mmol/L (23-31); Chloride 99 mmol/L (98-107); Estimated GFR-MDRD 90; Glucose 102 mg/dL (83-110); Potassium 3.9 mmol/L (3.5-5.1); Protein, Total 8.6 g/dL (5.8-8.1); Sodium 131 mmol/L (136-145)
[2020-09-29 21:21] LABS: WBC/HPF 21-50 HPF (0-3)
[2020-09-29 21:22] LABS: Bacteria/HPF 2+ HPF (None Seen); Squamous Epithelial 0-3 HPF (0-3)
== END 2020-09-29 22:15 | disposition home or self-care (01) ==
LOC: NAV ERS 20:08
DX: N39.0 Urinary tract infection, site not specified (principal); E78.5 Hyperlipidemia, unspecified; E78.00 Pure hypercholesterolemia, unspecified; I10 Essential (primary) hypertension; C67.9 Malignant neoplasm of bladder, unspecified; Z87.891 Personal history of nicotine dependence; Z79.899 Other long term (current) drug therapy
CPT/HCPCS: 71045; 80053; 81003; 81015; 83605; 85025; 87040; J7030

== ENCOUNTER 2020-11-01 00:35 | Emergency (ER) | payer MEDICARE, OTHER | END 2020-11-01 01:45 | disposition home or self-care (01) | LOC: NAV ERS 00:35 | DX: T83.091A Other mechanical complication of indwelling urethral catheter, initial encounter (principal); E78.5 Hyperlipidemia, unspecified; E78.00 Pure hypercholesterolemia, unspecified; I10 Essential (primary) hypertension; Z85.51 Personal history of malignant neoplasm of bladder; Z87.891 Personal history of nicotine dependence; Z79.899 Other long term (current) drug therapy | CPT/HCPCS: 51702; 51798 ==

== ENCOUNTER 2020-12-28 21:47 | Emergency (ER) | payer MEDICARE, OTHER ==
[2020-12-28 22:46] LABS: Bilirubin Negative (Negative); Blood, Urine Large (Negative); Clarity Turbid (Clear); Glucose, Urine (Dipstick) Negative (Negative); Ketone, Urine Trace mg/dL (Negative); Leukocyte Small (Negative); Nitrite Negative (Negative); Protein, Urine (Dipstick) > or equal to 300 mg/dL (Neg-Trace); Urobilinogen 0.2 mg/dL (Less than 2)
[2020-12-28 22:47] LABS: Bacteria/HPF 3+ HPF (None Seen); RBC/HPF 21-50 HPF (0-3); Squamous Epithelial 0-3 HPF (0-3); pH, Urine Greater/Equal 9.0 (5.0-9.0)
[2020-12-28 22:48] LABS: Mucous/LPF 1+ LPF (<2+); Triple Phosphate Crystal 2+ HPF (None Seen)
== END 2020-12-28 23:27 | disposition home or self-care (01) ==
LOC: NAV ERS 21:47
DX: T83.098A Other mechanical complication of other urinary catheter, initial encounter (principal); N39.0 Urinary tract infection, site not specified; R33.9 Retention of urine, unspecified; E78.5 Hyperlipidemia, unspecified; E78.00 Pure hypercholesterolemia, unspecified; I10 Essential (primary) hypertension; Z87.891 Personal history of nicotine dependence; Z79.899 Other long term (current) drug therapy
CPT/HCPCS: 51702; 81003; 81015; 87077; 87086; 87186

== ENCOUNTER 2021-06-30 12:40 | Emergency (ER) | payer MEDICARE, OTHER ==
[2021-06-30 13:28] LABS: #Eosinphils 0.3 thou/uL (0.0-0.7); #Lymphocytes 2.3 thou/uL (1.20-3.40); #Monocytes 0.5 thou/uL (0.11-0.59); #Neutrophils 1.6 thou/uL (1.40-6.50); %Basophils 0.9 % (0.0-1.0); %Eosinophils 7.2 % (0.0-10.0); %Lymphocytes 49.1 % (21.0-51.0); %Monocytes 9.8 % (0.0-10.0); Hemoglobin 11.8 g/dL (14.0-18.0); Mean Corpuscular HGB CONC 30.7 g/dL (32.0-36.0); Mean Corpuscular Hemoglobin 29.9 pg (27.0-31.0); Mean Corpuscular Volume 97.3 fL (78.0-98.0); Mean Platelet Volume 5.8 fL (7.4-10.4); Platelet Count 181 thou/uL (130-400); RBC Distribution Width 13.7 % (11.5-14.5); Red Blood Cell (RBC) Count 3.96 mill/uL (4.70-6.10); White Blood Cell (WBC) Count 4.7 thou/uL (4.8-10.8)
[2021-06-30 13:45] LABS: ALT (SGPT) 18 U/L (8-55); AST (SGOT) 24 U/L (5-34); Albumin 3.8 g/dL (3.4-4.8); Alkaline Phosphatase 80 U/L (40-110); Anion Gap 10 mmol/L (10-20); BUN (Urea Nitrogen) 15 mg/dL (8.4-25.7); Bilirubin, Total 0.7 mg/dL (0.2-1.2); Calc. Creatinine Clearance 0 mL/min (70-130); Calcium 9.6 mg/dL (7.8-10.44); Carbon Dioxide 30 mmol/L (23-31); Chloride 102 mmol/L (98-107); Globulin 4.4 g/dL (2.4-3.5); Glucose 97 mg/dL (83-110); Potassium 4.3 mmol/L (3.5-5.1); Protein, Total 8.2 g/dL (5.8-8.1); Sodium 138 mmol/L (136-145)
== END 2021-06-30 15:20 | disposition home or self-care (01) ==
LOC: NAV ERS 12:40
DX: K59.00 Constipation, unspecified (principal); E78.5 Hyperlipidemia, unspecified; E78.00 Pure hypercholesterolemia, unspecified; I10 Essential (primary) hypertension; Z87.891 Personal history of nicotine dependence; Z79.82 Long term (current) use of aspirin; Z79.899 Other long term (current) drug therapy
CPT/HCPCS: 74177; 80053; 83605; 84484; 85025; Q9967

== ENCOUNTER 2021-10-05 10:54 | Emergency (ER) | payer MEDICARE, OTHER | END 2021-10-05 13:16 | disposition short-term general hospital (02) | LOC: NAV ERS 10:54 | DX: M25.551 Pain in right hip (principal); E78.5 Hyperlipidemia, unspecified; Z87.891 Personal history of nicotine dependence; Z79.82 Long term (current) use of aspirin; Z79.899 Other long term (current) drug therapy | CPT/HCPCS: 72192 ==

== ENCOUNTER 2021-10-15 09:02 | Emergency (ER) | payer MEDICARE, OTHER ==
[2021-10-15 09:56] LABS: #Basophils 0.2 thou/uL (0.0-0.2); #Lymphocytes 1.3 thou/uL (1.20-3.40); #Monocytes 0.8 thou/uL (0.11-0.59); #Neutrophils 9.5 thou/uL (1.40-6.50); %Basophils 1.3 % (0.0-1.0); %Lymphocytes 11.2 % (21.0-51.0); %Monocytes 6.7 % (0.0-10.0); %Neutrophils 80.7 % (42.0-75.0); Hemoglobin 9.1 g/dL (14.0-18.0); Mean Corpuscular HGB CONC 31.8 g/dL (32.0-36.0); Mean Corpuscular Hemoglobin 32.2 pg (27.0-31.0); Mean Platelet Volume 4.7 fL (7.4-10.4); Platelet Count 365 thou/uL (130-400); RBC Distribution Width 12.7 % (11.5-14.5); Red Blood Cell (RBC) Count 2.83 mill/uL (4.70-6.10); White Blood Cell (WBC) Count 11.8 thou/uL (4.8-10.8)
[2021-10-15 10:11] LABS: ALT (SGPT) 12 U/L (8-55); AST (SGOT) 19 U/L (5-34); Albumin 3.5 g/dL (3.4-4.8); Alkaline Phosphatase 78 U/L (40-110); Anion Gap 12 mmol/L (10-20); BUN (Urea Nitrogen) 22 mg/dL (8.4-25.7); Bilirubin, Total 1.6 mg/dL (0.2-1.2); Calc. Creatinine Clearance 0 mL/min (70-130); Calcium 9.5 mg/dL (7.8-10.44); Carbon Dioxide 26 mmol/L (23-31); Chloride 103 mmol/L (98-107); Globulin 4.8 g/dL (2.4-3.5); Glucose 114 mg/dL (83-110); Potassium 3.9 mmol/L (3.5-5.1); Protein, Total 8.3 g/dL (5.8-8.1); Sodium 137 mmol/L (136-145)
[2021-10-15 10:48] LABS: Bilirubin Negative (Negative); Blood, Urine Small (Negative); Clarity Hazy (Clear); Glucose, Urine (Dipstick) Negative (Negative); Ketone, Urine 15 mg/dL (Negative); Leukocyte Small (Negative); Nitrite Positive (Negative); Protein, Urine (Dipstick) 100 mg/dL (Neg-Trace)
[2021-10-15 10:52] LABS: RBC/HPF 0-3 HPF (0-3); WBC/HPF Greater Than 50 HPF (0-3)
[2021-10-15 10:53] LABS: Bacteria/HPF 4+ HPF (None Seen); Squamous Epithelial 0-3 HPF (0-3)
[2021-10-15] MEDS ORDERED: Cephalexin 250 MG CAP ONE (11:12)
== END 2021-10-15 11:25 | disposition home or self-care (01) ==
LOC: NAV ERS 09:02
DX: N39.0 Urinary tract infection, site not specified (principal); E78.5 Hyperlipidemia, unspecified; E78.00 Pure hypercholesterolemia, unspecified; I10 Essential (primary) hypertension; Z87.891 Personal history of nicotine dependence; Z85.51 Personal history of malignant neoplasm of bladder; Z79.891 Long term (current) use of opiate analgesic; Z79.82 Long term (current) use of aspirin
CPT/HCPCS: 71045; 80053; 81003; 81015; 85025; 87077; 87086; 87186

== ENCOUNTER 2022-01-18 19:46 | Emergency (ER) | payer MEDICARE, OTHER ==
[2022-01-18 20:52] LABS: #Basophils 0.1 thou/uL (0.0-0.2); #Lymphocytes 1.1 thou/uL (1.20-3.40); #Monocytes 0.7 thou/uL (0.11-0.59); #Neutrophils 4.8 thou/uL (1.40-6.50); %Basophils 0.9 % (0.0-1.0); %Eosinophils 0.1 % (0.0-10.0); %Lymphocytes 16.2 % (21.0-51.0); %Monocytes 10.5 % (0.0-10.0); %Neutrophils 72.3 % (42.0-75.0); Hemoglobin 10.4 g/dL (14.0-18.0); Mean Corpuscular HGB CONC 31.7 g/dL (32.0-36.0); Mean Corpuscular Hemoglobin 30.3 pg (27.0-31.0); Mean Corpuscular Volume 95.6 fL (78.0-98.0); Mean Platelet Volume 6.3 fL (7.4-10.4); Platelet Count 179 thou/uL (130-400); RBC Distribution Width 13.3 % (11.5-14.5); Red Blood Cell (RBC) Count 3.44 mill/uL (4.70-6.10); White Blood Cell (WBC) Count 6.7 thou/uL (4.8-10.8)
[2022-01-18 21:07] LABS: ALT (SGPT) 12 U/L (8-55); AST (SGOT) 21 U/L (5-34); Albumin 3.5 g/dL (3.4-4.8); Alkaline Phosphatase 81 U/L (40-110); Anion Gap 12 mmol/L (10-20); BUN (Urea Nitrogen) 18 mg/dL (8.4-25.7); Bilirubin, Total 0.8 mg/dL (0.2-1.2); Calc. Creatinine Clearance 0 mL/min (70-130); Calcium 9.1 mg/dL (7.8-10.44); Carbon Dioxide 26 mmol/L (23-31); Chloride 102 mmol/L (98-107); Globulin 4.1 g/dL (2.4-3.5); Glucose 109 mg/dL (83-110); Potassium 3.4 mmol/L (3.5-5.1); Protein, Total 7.6 g/dL (5.8-8.1); Sodium 137 mmol/L (136-145)
[2022-01-18 21:14] LABS: Lipase Less than 4 U/L (8-78)
[2022-01-18 22:25] LABS: Bilirubin Small (Negative); Blood, Urine Moderate (Negative); Clarity Clear (Clear); Glucose, Urine (Dipstick) Negative (Negative); Ketone, Urine 15 mg/dL (Negative); Leukocyte Small (Negative); Nitrite Positive (Negative); Protein, Urine (Dipstick) 100 mg/dL (Neg-Trace); pH, Urine 6.5 (5.0-9.0)
[2022-01-18 22:34] LABS: Bacteria/HPF 2+ HPF (None Seen); Mucous/LPF 1+ LPF (<2+); RBC/HPF 0-3 HPF (0-3); Squamous Epithelial None Seen HPF (0-3); WBC/HPF 21-50 HPF (0-3)
[2022-01-19 13:43] LABS: SARS-CoV-2 PCR by NAA Not Detected (NotDetected)
== END 2022-01-18 23:01 | disposition home or self-care (01) ==
LOC: NAV ERS 19:46
DX: N30.90 Cystitis, unspecified without hematuria (principal); D64.9 Anemia, unspecified; Z20.822 Contact with and (suspected) exposure to COVID-19; E78.00 Pure hypercholesterolemia, unspecified; E78.5 Hyperlipidemia, unspecified; I10 Essential (primary) hypertension; Z87.891 Personal history of nicotine dependence; Z79.82 Long term (current) use of aspirin; Z79.899 Other long term (current) drug therapy
CPT/HCPCS: 80053; 81003; 81015; 83690; 85025; 87804; 99284; U0003; U0005